=== PATIENT | female | born 1960 | race Two or more races ===

== ENCOUNTER 2023-02-13 17:39 | Emergency (ER) | payer OTHER ==
[~2023-02-13] VITALS: Ht 162.6 cm; Wt 109.0 kg
[2023-02-13 19:15] VITALS: TEMP 96.9
[2023-02-13] MEDS ORDERED: ONDANSETRON ODT 4 MG TAB PO ONE (19:30)
[2023-02-13] MEDS ORDERED: MORPHINE SULFATE INJ 2 MG/ml SYRG IM ONE (19:30)
[2023-02-13 20:35] VITALS: BP 139/69; PULSE 69; RESP 18; O2SAT 95
== END 2023-02-13 21:23 | disposition home or self-care (01) ==
LOC: ER 17:39 → EDBD 17:39 → ER 21:05
DX: S16.1XXA Strain of muscle, fascia and tendon at neck level, initial encounter (principal); S29.012A Strain of muscle and tendon of back wall of thorax, initial encounter; S39.012A Strain of muscle, fascia and tendon of lower back, initial encounter; R51.9 Headache, unspecified; L72.12 Trichodermal cyst; E78.5 Hyperlipidemia, unspecified; I10 Essential (primary) hypertension; Z90.710 Acquired absence of both cervix and uterus; Z88.6 Allergy status to analgesic agent; Z88.8 Allergy status to other drugs, medicaments and biological substances; V43.62XA Car passenger injured in collision with other type car in traffic accident, initial encounter; Y93.89 Activity, other specified; Y92.488 Other paved roadways as the place of occurrence of the external cause; Y99.8 Other external cause status
CPT/HCPCS: 70450; 72070; 72100; 72125; 96372; 99285; J2270; Q0162